=== PATIENT | male | born 2000 | race Caucasian/White ===

== ENCOUNTER 2019-02-18 10:14 | Emergency (ER) | payer BC ==
[~2019-02-18] VITALS: Ht 177.8 cm; Wt 91.0 kg
[2019-02-18] MEDS ORDERED: SODIUM CHLORIDE 0.9% 1,000 ML IV ONE (11:17)
[2019-02-18] MEDS ORDERED: ONDANSETRON HCL 4MG/2ML INJ IV STA (11:17)
[2019-02-18] MEDS ORDERED: KETOROLAC 15MG/ML VIAL IV ONE (11:30)
[2019-02-18 11:46] LABS: BASOPHILS % 0.3 % (0.0-2.0); EOSINOPHILS % 0.2 % (0.0-5.0); HEMATOCRIT. 48.8 % (42.0-52.0); HEMOGLOBIN. 17.1 g/dL (14.0-18.0); LYMPHOCYTES % 14.9 % (20.0-50.0); MEAN CORPUSCULAR HEMOGLOBIN 30.9 pg (28.0-32.0); MEAN CORPUSCULAR VOLUME 88.1 fL (80.0-94.0); MEAN PLATELET VOLUME 7.9 fl (7.4-10.4); MONOCYTES % 4.4 % (2.0-8.0); NEUTROPHILS % 80.2 % (40.0-76.0); PLATELET 220 x1000/uL (130-400); RED BLOOD CELL COUNT 5.54 mill/uL (4.7-6.1); RED CELL DISTRIBUTION WIDTH 12.7 % (11.6-14.6)
[2019-02-18 11:52] LABS: CHLORIDE 105 mEq/L (98-107)
[2019-02-18] MEDS ORDERED: HYDROCODONE/ACETAMINOPHEN 5/325MG TABLET PO ONE (13:30)
[2019-02-18 14:04] VITALS: BP 112/70
== END 2019-02-18 14:05 | disposition home or self-care (01) ==
LOC: ER 10:25
DX: R10.33 Periumbilical pain (principal)
CPT/HCPCS: 36415; 74176; 80053; 83690; 85025; 96361; 96374; 96375; 99284; J1885; J2405; J7030

== ENCOUNTER 2019-02-18 17:36 | Inpatient (IN) | payer BC ==
[~2019-02-18] VITALS: Ht 182.9 cm; Wt 103.4 kg
[2019-02-18] MEDS ORDERED: SODIUM CHLORIDE 0.9% 1,000 ML IV ONE ×2 (18:42→22:00)
[2019-02-18] MEDS ORDERED: FAMOTIDINE 20MG/2ML VIAL IV STA (18:42)
[2019-02-18] MEDS ORDERED: ONDANSETRON HCL 4MG/2ML INJ IV STA (18:42)
[2019-02-18 19:14] LABS: BASOPHILS % 0.3 % (0.0-2.0); HEMATOCRIT. 47.4 % (42.0-52.0); HEMOGLOBIN. 16.8 g/dL (14.0-18.0); LYMPHOCYTES % 9.1 % (20.0-50.0); MEAN CORPUSCULAR HEMOGLOBIN 31.1 pg (28.0-32.0); MEAN CORPUSCULAR VOLUME 87.8 fL (80.0-94.0); MEAN PLATELET VOLUME 7.8 fl (7.4-10.4); MONOCYTES % 5.9 % (2.0-8.0); NEUTROPHILS % 84.7 % (40.0-76.0); PLATELET 222 x1000/uL (130-400); RED CELL DISTRIBUTION WIDTH 12.8 % (11.6-14.6)
[2019-02-18 19:15] LABS: CHLORIDE 104 mEq/L (98-107)
[2019-02-18 19:16] LABS: PROTHROMBIN TIME 10.6 sec (9.6-11.0)
[2019-02-18] MEDS ORDERED: IOHEXOL-300 100 ML BOTTLE ONE (21:22)
[2019-02-18] MEDS ORDERED: CEFTRIAXONE 1 G PREMIX 50 ML IV ONE (22:00)
[2019-02-18] MEDS ORDERED: MORPHINE SULFATE 4 MG/ML CPJ (NOT FOR IM USE) IV ONE (22:00)
[2019-02-18] MEDS ORDERED: METRONIDAZOLE 500 MG PREMIX 100 ML IV ONE (22:00)
[2019-02-18] MEDS ORDERED: HYDRALAZINE 20MG/ML VIAL IV PRN (22:45)
[2019-02-18] MEDS ORDERED: IPRATROPIUM/ALBUTEROL 0.5-3(2.5)MG/3ML NEB INH PRN (22:45)
[2019-02-18] MEDS ORDERED: FENTANYL CITRATE/PF 50MCG/ML 2ML VIAL IV PRN (22:45)
[2019-02-18] MEDS ORDERED: MAGNESIUM/ALUMINUM HYDROXIDE/SIMETHICONE 30ML UDC PO PRN (22:45)
[2019-02-18] MEDS ORDERED: ONDANSETRON HCL 4MG/2ML INJ IV PRN ×3 (22:45→23:15)
[2019-02-18] MEDS ORDERED: HYDROMORPHONE HCL/PF 2MG/ML CPJ IV PRN ×2 (22:45)
[2019-02-18] MEDS ORDERED: DOCUSATE SODIUM 100MG CAPSULE PO PRN (22:45)
[2019-02-18] MEDS ORDERED: ACETAMINOPHEN 325MG TABLET PO PRN ×2 (22:45→23:15)
[2019-02-18] MEDS ORDERED: LORAZEPAM 2MG/ML CPJ IV PRN (22:45)
[2019-02-18] MEDS ORDERED: GUAIFENESIN 200MG/10ML SUGAR FREE UDC PO PRN (22:45)
[2019-02-18] MEDS ORDERED: DIPHENHYDRAMINE 50MG/ML VIAL IV PRN (22:45)
[2019-02-18] MEDS ORDERED: CLONIDINE 0.1MG TABLET PO PRN (22:45)
[2019-02-18] MEDS ORDERED: HYDROCODONE/ACETAMINOPHEN 5/325MG TABLET PO PRN ×3 (22:45→23:15)
[2019-02-18] MEDS ORDERED: PROPOFOL 200MG/20ML VIAL IV ONE (22:46)
[2019-02-18] MEDS ORDERED: MIDAZOLAM HCL 2 MG/2 ML VIAL ONE (22:46)
[2019-02-18] MEDS ORDERED: SUCCINYLCHOLINE CHLORIDE 200MG/10ML IV ONE (22:46)
[2019-02-18] MEDS ORDERED: ROCURONIUM BROMIDE 10MG/ML VIAL 5ML IV ONE (22:46)
[2019-02-18] MEDS ORDERED: LIDOCAINE HCL/PF 1% 10 MG/ML 5ML VIAL ONE (22:46)
[2019-02-18] MEDS ORDERED: MORPHINE SULFATE 4 MG/ML CPJ (NOT FOR IM USE) IV PRN ×2 (23:15→23:44)
[2019-02-18] MEDS ORDERED: SKIN ADHESIVE 0.7 GM EA TOP ONE (23:19)
[2019-02-18] MEDS ORDERED: BUPIVACAINE HCL 0.5% (5MG/ML) 50ML ONE (23:19)
[2019-02-18] MEDS ORDERED: DEXAMETHASONE 4MG/ML 1ML VIAL ONE (23:23)
[2019-02-18] MEDS ORDERED: NEOSTIGMINE METHYLSULFATE 1MG/ML 10 ML VIAL ONE (23:26)
[2019-02-18] MEDS ORDERED: GLYCOPYRROLATE 0.2 MG/ML 2ML VIAL ONE (23:27)
[2019-02-18] MEDS ORDERED: KETOROLAC 30MG/ML VIAL ONE (23:38)
[2019-02-19] VITALS: BP 116/53
[2019-02-19] MEDS ORDERED: HYDRALAZINE 10 MG in SODIUM CHLORIDE 0.9% 49.5 ML IV PRN (01:15)
[2019-02-19 01:30] VITALS: BP 116/53
[2019-02-19] MEDS ORDERED: DEXT 5%/0.45% NACL 1000ML 1,000 ML IV SCH (02:00)
[2019-02-19 04:00] VITALS: BP 120/72
[2019-02-19] MEDS ORDERED: SODIUM CHLORIDE 0.9% INJ 3ML FLUSH IVF SCH ×2 (06:00)
[2019-02-19 07:47] LABS: HEMOGLOBIN. 15.8 g/dL (14.0-18.0); MEAN CORPUSCULAR HEMOGLOBIN 31.3 pg (28.0-32.0); MEAN PLATELET VOLUME 8.3 fl (7.4-10.4); PLATELET 221 x1000/uL (130-400); RED BLOOD CELL COUNT 5.05 mill/uL (4.7-6.1); RED CELL DISTRIBUTION WIDTH 12.6 % (11.6-14.6)
[2019-02-19 07:58] LABS: CHLORIDE 109 mEq/L (98-107)
[2019-02-19 08:00] VITALS: BP 114/56
[2019-02-19 09:31] LABS: PLATELET ESTIMATE NORMAL
[2019-02-19 10:21] VITALS: BP 114/56
== END 2019-02-19 12:00 | disposition home or self-care (01) | DRG 343 ==
LOC: ER 17:36 → 6EST 22:15 → EDBEDREQ 22:22 → EDBEDREQTM 22:22 → ENRESERV 23:18
PROVIDERS: ADMIT Internal Medicine; ATTEND Internal Medicine
PROC: 0DTJ4ZZ Resection of Appendix, Percutaneous Endoscopic Approach (ICD-10-PCS; principal; 2019-02-18)
DX: K35.80 Unspecified acute appendicitis (principal)
CPT/HCPCS: 36415; 74177; 88304; 96361; 96374; 96375; 99285; J0330; J0696; J1100; J1885; J2250; J2270; J2405; J2704; J2710; J3010; J3490; J7030; Q9967